=== PATIENT | male | born 1940 | race Caucasian/White ===

== ENCOUNTER 2018-06-21 06:35 | Day surgery (SDC) | payer MEDICARE, BC ==
[~2018-06-21] VITALS: Ht 177.8 cm; Wt 92.3 kg
[2018-06-21 07:40] VITALS: BP 137/75; PULSE 68; TEMP 97.9
[2018-06-21] MEDS ORDERED: B-12 100 MCG PO (07:45)
[2018-06-21] MEDS ORDERED: TURMERIC500 MG PO (07:46)
[2018-06-21] MEDS ORDERED: PRINIVIL20 MG PO (07:46)
[2018-06-21] MEDS ORDERED: LIPITOR 40MG TA40 MG PO (07:47)
[2018-06-21] MEDS ORDERED: ASPIRIN 81M81 MG/TA2 PO (07:47)
[2018-06-21] MEDS ORDERED: [UNRECOGNIZED DRUG - OTHER] PO (07:48)
[2018-06-21 09:35] VITALS: BP 131/61; PULSE 64
[2018-06-21 09:50] VITALS: BP 140/63; PULSE 66
[2018-06-21 10:05] VITALS: BP 128/62; PULSE 59
[2018-06-21 10:23] VITALS: BP 131/61; PULSE 70; TEMP 98.3
== END 2018-06-21 10:36 | disposition home or self-care (01) ==
LOC: SDCO 06:35
DX: N35.812 Other bulbous urethral stricture, male (principal); G47.33 Obstructive sleep apnea (adult) (pediatric); I10 Essential (primary) hypertension; M54.5 Low back pain; G47.00 Insomnia, unspecified; R35.1 Nocturia; R39.12 Poor urinary stream; Z95.1 Presence of aortocoronary bypass graft; Z79.82 Long term (current) use of aspirin; Z82.49 Family history of ischemic heart disease and other diseases of the circulatory system; Z80.6 Family history of leukemia
CPT/HCPCS: J0690; J1100; J2250; J2405; J2704; J3010; J7120